=== PATIENT | female | born 1940 | race Caucasian/White ===

== ENCOUNTER → 2020-08-06 | Outpatient (CLI) | payer MEDICARE, BC ==
[~2020-08-06] MED LIST: ALEVE 220MG220 MG PO; ATIVAN 0.50.5 MG/TAB; ATIVAN 0.50.5 MG/TAB PO; ATIVAN 1MG T1 MG/TAB PO; BRINTELLIX10 PO; BUSPAR5 MG PO; BUSPIRONE HCL7.5 MG PO; CIPRO 100MG TA100 MG PO; CRESTOR 10MG10 MG PO; FISH OIL1000 MG PO; FLEXERIL 1010 MG/TAB PO; FLEXERIL5 MG PO; KLONOPIN 1MG1 MG PO; LEVOXYL0.075 MG PO; LEXAPRO 10MG10 MG PO; LITHOBID 3300 MG/TAB; MAGIC MOUTH PO; MAGNESIUM100 MG PO; MOTRIN 400400 MG/TAB PO; MULTIPLE VITAMI1 CAP PO; NEURONTIN400 MG/CAP PO; NORCO 325 MG-51 TAB PO; PAXIL 20MG20 MG PO; PAXIL20 MG PO; PAXIL40 MG; PROBIOTIC ACID1 EAC3 PO; PROZAC 10MG10 MG PO; REMERON 15M15 MG/TA1; REMERON 15M15 MG/TA1 PO; SINEQUAN75 MG PO; SYNTHROID0.05 MG/TA PO; VOLTAREN 75 DR75 MG PO; XANAX 0.5MG0.5 MG PO; XANAX0.5 MG PO; ZOCOR 40MG40 MG PO; ZOCOR5 MG PO
== END ==
LOC: COL.RAD 10:33
DX: K76.0 Fatty (change of) liver, not elsewhere classified (principal); Q63.1 Lobulated, fused and horseshoe kidney; Z90.710 Acquired absence of both cervix and uterus
CPT/HCPCS: Q9967

== ENCOUNTER → 2020-09-10 | Outpatient (CLI) | payer MEDICARE | LOC: MHCPAIN 14:30 | DX: M47.817 Spondylosis without myelopathy or radiculopathy, lumbosacral region (principal); M53.3 Sacrococcygeal disorders, not elsewhere classified; M54.5 Low back pain | CPT/HCPCS: G0463 ==

== ENCOUNTER → 2020-09-12 | Outpatient (CLI) | payer MEDICARE | LOC: MHCPAIN 12:57 | DX: M47.818 Spondylosis without myelopathy or radiculopathy, sacral and sacrococcygeal region (principal); M53.3 Sacrococcygeal disorders, not elsewhere classified | CPT/HCPCS: G0260; J1040; Q9967 ==

== ENCOUNTER → 2020-09-24 | Outpatient (CLI) | payer MEDICARE | LOC: MHCPAIN 13:56 | DX: M47.817 Spondylosis without myelopathy or radiculopathy, lumbosacral region (principal); M54.5 Low back pain; M53.3 Sacrococcygeal disorders, not elsewhere classified | CPT/HCPCS: G0463 ==

== ENCOUNTER → 2020-09-30 | Outpatient (CLI) | payer MEDICARE | LOC: MHCPAIN 09:59 | DX: M47.817 Spondylosis without myelopathy or radiculopathy, lumbosacral region (principal); M54.5 Low back pain; M53.3 Sacrococcygeal disorders, not elsewhere classified ==

== ENCOUNTER 2021-07-09 10:08 | Inpatient (IN) | payer MEDICARE, BC ==
[~2021-07-09] VITALS: Ht 160 cm; Wt 67.3 kg
[~2021-07-09 10:08] MED LIST changes: +NEURONTIN300 MG/CAP PO; -NEURONTIN400 MG/CAP PO
[2021-07-09 11:32] LABS: HEMATOCRIT 37.9 % (37.0-47.0); HEMOGLOBIN 12.6 g/dl (12.5-16.0); MEAN CELL VOLUME 92 fl (80.0-100.0); MEAN CORPUSCULAR HEMOGLOBIN 31 pg (27-31); MEAN CORPUSCULAR HGB CONC 33 g/dl (33.0-37.0); MEAN PLATELET VOLUME 10.5 fl (7.4-10.4); PLATELET COUNT 186 K/mm3 (130-400); REDCELL DISTRIBUTION WIDTH-CV 13.5 % (11.5-14.5)
[2021-07-09 11:46] LABS: ARTERIAL BLD GAS O2 SATURATION 95.8 % (92-100); ARTERIAL BLOOD GAS BASE EXCESS 1.5 (-2-2); ARTERIAL BLOOD GAS HCO3 25.7 meq/L (22-26); ARTERIAL BLOOD GAS PCO2 39.5 mmHg (35-45); ARTERIAL BLOOD GAS PO2 78.8 mmHg (80-100); ARTERIAL BLOOD GAS pH 7.43 (7.35-7.45)
[2021-07-09 11:52] LABS: ALBUMIN 3.1 gm/dL (3.4-4.8); BILIRUBIN,TOTAL 0.5 mg/dL (0.2-1.2); CALCIUM 8.5 mg/dL (8.4-10.2); CREATININE, serum 1.16 mg/dL (0.57-1.11); POTASSIUM 4.1 mmol/L (3.5-4.5); TOTAL PROTEIN 6.5 gm/dL (6.2-8.1)
[2021-07-09 11:58] LABS: BAND 26 % (0-10); LYMPHOCYTE 5 % (20.0-51.0); NEUTROPHILS 63 % (42.0-75.2)
[2021-07-09 12:00] LABS: PLATELET ESTIMATE NORMAL (NORMAL); TROPONIN-I 0.762 ng/mL (0.00-0.033)
[2021-07-09 15:05] VITALS: BP 124/79; PULSE 115; TEMP 99.2
[2021-07-09 16:00] VITALS: BP 124/72; PULSE 87; TEMP 98.8
[2021-07-09 19:56] VITALS: BP 118/46; PULSE 80; TEMP 98.7
[2021-07-09 20:35] VITALS: BP 113/42; PULSE 79; TEMP 98.9
[2021-07-09 22:56] LABS: COLLECTION METHOD CLEAN CATCH
[2021-07-09 23:02] LABS: PH 5 (5-8); SQUAMOUS EPITHELIAL None Seen /hpf (0-10); URINE APPEARANCE Hazy (CLEAR/HAZY); URINE BACTERIA Rare /hpf (NONE SEEN); URINE BILIRUBIN Negative (NEGATIVE); URINE BLOOD 1+ (NEGATIVE); URINE COLOR Yellow (YELLOW); URINE GLUCOSE 3+ (NEGATIVE); URINE KETONE Negative (NEGATIVE); URINE LEUKOCYTE ESTERASE Negative (NEGATIVE); URINE NITRATE Negative (NEGATIVE); URINE PROTEIN(semi-quant) 1+ (NEGATIVE); URINE RBC 0-2 /hpf (0-2); URINE UROBILINOGEN Negative (NEGATIVE)
[2021-07-10] VITALS (7 sets, daily range): BP systolic 116–160; BP diastolic 45–84; PULSE 76–91; TEMP 97.3–98.3
--- NOTE | 2021-07-10 00:25 | NUR ---
Patient assessed around 2114. Denies having pain and discomfort. PICC to RUE. IV fluids running per orders. Reports SOB and dyspnea with exertion. On oxygen at 3 L/min via NC. HRR. Telemetry in place. Voices no questions, needs, or concerns at this time. In bed with call light within reach.
--- NOTE | 2021-07-10 01:46 | NUR ---
HARSH COUGH NONPRODUCTIVE SCATTERED CRACKLES T/O
--- NOTE | 2021-07-10 05:49 | NUR ---
Patient has been resting in bed with call light within reach. Bed alarm on for safety. Droswy, but awakens easily. Continues on IV fluids per orders. On oxygen at 3 L/min via NC. Continues on IV ABX and steroids per orders. Voices no questions, needs, or concerns at this time. In bed with call light within reach.
[2021-07-10 07:44] LABS: HEMOGLOBIN 11.4 g/dl (12.5-16.0); MEAN CELL VOLUME 94 fl (80.0-100.0); MEAN CORPUSCULAR HEMOGLOBIN 31 pg (27-31); MEAN CORPUSCULAR HGB CONC 32 g/dl (33.0-37.0); MEAN PLATELET VOLUME 10.9 fl (7.4-10.4); PLATELET COUNT 154 K/mm3 (130-400); RED BLOOD COUNT 3.74 M/mm3 (4.10-5.30); REDCELL DISTRIBUTION WIDTH-CV 13.7 % (11.5-14.5)
[2021-07-10 07:47] LABS: HEMATOCRIT 35.2 % (37.0-47.0)
[2021-07-10 08:00] LABS: BAND 29 % (0-10); LYMPHOCYTE 3 % (20.0-51.0); NEUTROPHILS 66 % (42.0-75.2)
[2021-07-10 08:01] LABS: PLATELET ESTIMATE NORMAL (NORMAL)
[2021-07-10 08:04] LABS: CALCIUM 8.2 mg/dL (8.4-10.2); CREATININE, serum 1.06 mg/dL (0.57-1.11); POTASSIUM 3.6 mmol/L (3.5-4.5)
--- NOTE | 2021-07-10 11:09 | NUR ---
cushion worker met with patient to discuss discharge plan. Patient currently lives at home alone in [place]. She reports to being independent with her ADL's and does not utilize any DME to assist with mobility. Patient reports that she has no home oxygen needs but does use a CPAP at night. She is currently on 3L of oxygen in room. PCP is Dr. James and she utilizes [facility] for medications. Patient reports that she does have a DPOA-HC established. She has 4 children but states that her daughter Victor Manuel ([phone]) is both her DPOA-HC and her financial DPOA. Patient is awaiting on PT/OT evals. Discharge plan: Home; pending PT/OT recommendations
--- NOTE | 2021-07-10 20:55 | NUR ---
Pt found with O2 off. She stated she had just gone to the bathroom. SPO2 checked and 94% on room air. Tx done via mask, tolerated well. Home CPAP unit setup and pt assisted putting it on.
[2021-07-11 03:39] VITALS: BP 139/64; PULSE 78; TEMP 97.4
[2021-07-11 06:45] LABS: HEMOGLOBIN 11.8 g/dl (12.5-16.0); MEAN CELL VOLUME 93 fl (80.0-100.0); MEAN CORPUSCULAR HEMOGLOBIN 31 pg (27-31); MEAN CORPUSCULAR HGB CONC 33 g/dl (33.0-37.0); MEAN PLATELET VOLUME 10.8 fl (7.4-10.4); PLATELET COUNT 180 K/mm3 (130-400); RED BLOOD COUNT 3.86 M/mm3 (4.10-5.30); REDCELL DISTRIBUTION WIDTH-CV 13.4 % (11.5-14.5)
[2021-07-11 06:49] LABS: HEMATOCRIT 35.7 % (37.0-47.0)
[2021-07-11 07:03] LABS: CALCIUM 8.5 mg/dL (8.4-10.2); CREATININE, serum 1.14 mg/dL (0.57-1.11); POTASSIUM 3.9 mmol/L (3.5-4.5)
[2021-07-11 07:14] LABS: BAND 26 % (0-10); LYMPHOCYTE 4 % (20.0-51.0); NEUTROPHILS 67 % (42.0-75.2); PLATELET ESTIMATE NORMAL (NORMAL)
[2021-07-11 08:20] VITALS: BP 146/52; PULSE 82; TEMP 97.8
--- NOTE | 2021-07-11 09:00 | NUR ---
PT C/O PAIN IN R SIDE OF HEAD WHERE PT SAID SHE FELL AT HOME. PT AOX4, 96% ON RA, PT LUNGS SOUND COARSE WITH WHEEZES PRESENT. PT ASSESSMENT PERFORMED, ASSESSMENT PERFORMED, NO OTHER NEEDS
--- NOTE | 2021-07-11 09:16 | NUR ---
Several visit attempts; Systems Security Consultant left Patient a prayer card and will keep her in Systems Security Consultant's prayers.
[2021-07-11 11:41] VITALS: BP 165/65; PULSE 76; TEMP 97.9
--- NOTE | 2021-07-11 15:20 | NUR ---
PT/OT are recommending home with home health. SW met with the patient to review discharge plan and to discuss their recommendation. The patient declined home health. She states that her daughter, Victor Manuel, assists her with anything she may need and that her granddaughter lives behind her home. She states that she is not interested in home health at this time. *Discharge plan: home*
[2021-07-11 16:02] VITALS: BP 159/69; PULSE 81; TEMP 98
--- NOTE | 2021-07-11 19:17 | NUR ---
PATIENT RESTING IN BED COMFORTABLY. NO COMPLAINTS OF PAIN. CONCERNS ABOUT INSULIN MANAGEMENT, EXPRESSED NO PERSONAL HISTORY OF DIABETES BUT NOTES FAMILY HISTORY. NO SIGNIFICANT EVENTS THIS SHIFT. RESTED MOST OF DAY, WORKED WITH THERAPY WHICH EXHAUSTED PATIENT GREATLY.
[2021-07-11 19:29] VITALS: BP 152/53; PULSE 86; TEMP 98.3
--- NOTE | 2021-07-11 23:12 | NUR ---
ALERT AND OX4. DENIES CHEST PAIN OR DIZZY. SOA WHEN UP AMBULATING. O2 3L/CPAP AT HS. NEURO INTACT. PICC LINE TO RT UPPER ARM FLUSHES WELL W GOOD BLOOD RETURN. NS @50ML/HR. AC/HS BLOOD SUGAR AND TX PER ORDER. POC DISCUSSED. CALL LIGHT WI REACH.
[2021-07-12] VITALS (9 sets, daily range): BP systolic 143–188; BP diastolic 53–85; PULSE 70–88; TEMP 97.5–98.2
[2021-07-12 06:11] LABS: HEMOGLOBIN 11.5 g/dl (12.5-16.0); MEAN CELL VOLUME 91 fl (80.0-100.0); MEAN CORPUSCULAR HEMOGLOBIN 30 pg (27-31); MEAN CORPUSCULAR HGB CONC 33 g/dl (33.0-37.0); MEAN PLATELET VOLUME 10.8 fl (7.4-10.4); PLATELET COUNT 192 K/mm3 (130-400); RED BLOOD COUNT 3.78 M/mm3 (4.10-5.30); REDCELL DISTRIBUTION WIDTH-CV 13.3 % (11.5-14.5)
[2021-07-12 06:14] LABS: HEMATOCRIT 34.5 % (37.0-47.0)
[2021-07-12 06:30] LABS: ALBUMIN 2.2 gm/dL (3.4-4.8); CREATININE, serum 0.77 mg/dL (0.57-1.11); MAGNESIUM 1.9 mg/dL (1.6-2.6); PHOSPHOROUS 2.3 mg/dL (2.3-4.7)
[2021-07-12 06:33] LABS: POTASSIUM 2.8 mmol/L (3.5-4.5)
--- NOTE | 2021-07-12 06:54 | NUR ---
Patient continues getting fluids ant antibiotics. She removed the telemetry leads twice. She did not complained of pain. She used her CPAP intermitently. Lab called giving a potassium result of 2.8. Report will be given to day RN.
[2021-07-12 07:23] LABS: BAND 24 % (0-10); LYMPHOCYTE 5 % (20.0-51.0); METAMYELOCYTE 2 % (0-0); NEUTROPHILS 65 % (42.0-75.2); PLATELET ESTIMATE NORMAL (NORMAL)
--- NOTE | 2021-07-12 08:17 | NUR ---
Assessment completed, alert/oriented, vital signs stable, denies pain, stated she "feels a little better", no resp.difficulty noted, a few crackles to her right mid-lower lobe, all other lung de la rosa CTA, she still had a moist/ non-productive cough, heart RRR/SR on tele, distal pulses are palpalbe, wore C-pap overnight and is on room air/ not requiring supplemental oxyen, she is up ambulating independently, I helped order her breakfast and administered her morning medications, Potassium 2.8/ notified hospitalist and we are initiating replacement protocol, she is up ambulating hallway with PT now, will continue to monitor
--- NOTE | 2021-07-12 21:45 | NUR ---
Patient assessed around 2100. Alert and oriented, and able to make needs known. High fall risk precautions in palce. PICC to RUE with IV fluids running. Continues on IV ABX and Steroids. Explained that steroids increase blood sugars, as she was worried about elevated blood sugars. Voiced understanding. Reports continued SOB with exertion. On room air, but wears CPAP at night. LS expiratory wheezing in upper lobes, coarse crackles in lower. Has moist cough, but unable to produce sputum. Given Sputum specimen cut to try and get sample. HRR. Telemetry in place. BSAx4. Abdomen soft and non-tender. Voices no questions, needs, or concerns at this time. In bed with call light within reach.
[2021-07-13] VITALS (7 sets, daily range): BP systolic 143–186; BP diastolic 62–73; PULSE 65–82; TEMP 97.8–98.4
--- NOTE | 2021-07-13 05:49 | NUR ---
Patient has been wearing CPAP this shift. Denies pain and discomfort. Continues to have SOB and dyspnea with exertion. Unable to produce sputum for sputum sample. IV fluids continue as well as ABX and steroids. Voices no questions, needs, or concerns at this time. In bed with call light within reach.
[2021-07-13 06:39] LABS: HEMATOCRIT 38.1 % (37.0-47.0); HEMOGLOBIN 12.4 g/dl (12.5-16.0); MEAN CELL VOLUME 93 fl (80.0-100.0); MEAN CORPUSCULAR HEMOGLOBIN 30 pg (27-31); MEAN CORPUSCULAR HGB CONC 33 g/dl (33.0-37.0); MEAN PLATELET VOLUME 10.6 fl (7.4-10.4); PLATELET COUNT 229 K/mm3 (130-400); RED BLOOD COUNT 4.09 M/mm3 (4.10-5.30); REDCELL DISTRIBUTION WIDTH-CV 13.2 % (11.5-14.5)
[2021-07-13 06:43] LABS: ALBUMIN 2.3 gm/dL (3.4-4.8); CALCIUM 8.3 mg/dL (8.4-10.2); CREATININE, serum 0.9 mg/dL (0.57-1.11); MAGNESIUM 1.9 mg/dL (1.6-2.6); PHOSPHOROUS 4.1 mg/dL (2.3-4.7); POTASSIUM 3.8 mmol/L (3.5-4.5)
[2021-07-13 07:28] LABS: BAND 17 % (0-10); LYMPHOCYTE 4 % (20.0-51.0); METAMYELOCYTE 1 % (0-0); NEUTROPHILS 74 % (42.0-75.2); PLATELET ESTIMATE NORMAL (NORMAL)
--- NOTE | 2021-07-13 08:00 | NUR ---
Assessment completed, alert/oriented, vital signs stable, denies pain this or discomfort, reports "feeling about the same", still has some dyspnea with exertion, still has some coarse lung sounds to RLL, heart RRR/distal pulses palpable, blood sugars are still running high and she remains on the IV steroids, she is ambulatory and independent in the room, morning meds given and she has breakfast coming, shanonnevaeh needs
--- NOTE | 2021-07-13 22:23 | NUR ---
Patient assessed around 2004. Alert and oriented. Denies pain and discomfort. PICC to RUE, IV fluids and ABX running per orders. Denies SOB and dyspnea. On room air. Wears CPAP at night. LS expiratory wheezes. HRR. Telemetry in place. BSAx4. Abdomen soft and non-tender. No edema. Voices no questions, needs, or concerns at this time. In bed with call light within reach.
[2021-07-14 05:04] VITALS: BP 157/72; PULSE 79; TEMP 97.8
--- NOTE | 2021-07-14 05:52 | NUR ---
Patient remained on room air during the night, but did wear CPAP while sleeping. Has denied pain and discomfort. Reports feeling better, but continues to have "normal" shortness of breath with exertion. Asking if she will be able to go home today, and told patient that it will be up to the physician when they come do rounds this morning. Voiced understanding. Voices no further questions, needs, or concerns at this time. In bed with call light within reach.
[2021-07-14 07:18] LABS: HEMATOCRIT 38.3 % (37.0-47.0); HEMOGLOBIN 12.8 g/dl (12.5-16.0); MEAN CELL VOLUME 91 fl (80.0-100.0); MEAN CORPUSCULAR HEMOGLOBIN 31 pg (27-31); MEAN CORPUSCULAR HGB CONC 33 g/dl (33.0-37.0); MEAN PLATELET VOLUME 10.1 fl (7.4-10.4); PLATELET COUNT 270 K/mm3 (130-400); RED BLOOD COUNT 4.19 M/mm3 (4.10-5.30); REDCELL DISTRIBUTION WIDTH-CV 13.3 % (11.5-14.5)
[2021-07-14 07:32] LABS: ALBUMIN 2.4 gm/dL (3.4-4.8); CALCIUM 8.3 mg/dL (8.4-10.2); CREATININE, serum 0.92 mg/dL (0.57-1.11); MAGNESIUM 1.9 mg/dL (1.6-2.6); PHOSPHOROUS 5.2 mg/dL (2.3-4.7); POTASSIUM 3.9 mmol/L (3.5-4.5)
[2021-07-14 08:00] VITALS: BP 173/68; PULSE 79; TEMP 97.7
[2021-07-14 08:12] LABS: BAND 1 % (0-10); LYMPHOCYTE 6 % (20.0-51.0); NEUTROPHILS 90 % (42.0-75.2); PLATELET ESTIMATE NORMAL (NORMAL)
[2021-07-14] MEDS ORDERED: AMOXICILLIN 8751 TAB PO (09:48)
[2021-07-14] MEDS ORDERED: PREDNISONE10 MG PO (09:53)
[2021-07-14] MEDS ORDERED: NORVASC 5MG5 MG/TAB PO (09:55)
[2021-07-14] MEDS ORDERED: ASPIRIN 81M81 MG/TA2 PO (09:59)
--- NOTE | 2021-07-14 11:03 | NUR ---
Assessment completed, alert/oriented but very forgetful, vital signs stable, denies pain or discomfort and report "feeling better today", lung sounds improved, still has some crackles to right lower lobe/ but good air movement overall, daughter present at bedside and Hospitalist have been around to discuss plan of care with them, discharging home today
[2021-07-14 12:23] VITALS: BP 165/69; PULSE 76; TEMP 97.9
--- NOTE | 2021-07-14 14:00 | NUR ---
Patient to discharge home today. SW met with patient to present and review IM form. Patient's daughter at bedside. Patient verbalized understanding and provided signature. SW placed form in chart and provided copy to patient. Discharge Plan: Home
--- NOTE | 2021-07-14 14:30 | NUR ---
Discharge orders discussed with patient and her daughter, instructed to follow up with PCP/Cards/Pulm as we have scheduled for her, instructed to take meds as prescribed/ scripts sent to pharmacy for her, PICC removed by AIVS, Tele removed, leaving with daughter, i escorted her out via wheelchair
== END 2021-07-14 15:59 | disposition home or self-care (01) | DRG 871 ==
LOC: COL.ER 10:08 → MEDICAL 13:37
PROVIDERS: Physician Assistant; ADMIT Internal Medicine
PROC: 02HV33Z Insertion of Infusion Device into Superior Vena Cava, Percutaneous Approach (ICD-10-PCS; principal; 2021-07-09)
DX: A41.9 Sepsis, unspecified organism (principal); J96.01 Acute respiratory failure with hypoxia; J18.9 Pneumonia, unspecified organism; I21.A1 Myocardial infarction type 2; G93.40 Encephalopathy, unspecified; F32.A Depression, unspecified; M54.50 Low back pain, unspecified; Z66 Do not resuscitate; M19.90 Unspecified osteoarthritis, unspecified site; K58.9 Irritable bowel syndrome, unspecified; E78.5 Hyperlipidemia, unspecified; E03.9 Hypothyroidism, unspecified; F41.1 Generalized anxiety disorder; G47.33 Obstructive sleep apnea (adult) (pediatric); R73.9 Hyperglycemia, unspecified; T38.0X5A Adverse effect of glucocorticoids and synthetic analogues, initial encounter; E87.6 Hypokalemia; Z20.822 Contact with and (suspected) exposure to COVID-19; Z87.891 Personal history of nicotine dependence
CPT/HCPCS: 99223-AI; 99232-AI; 99233-AI; 99239; C1751; J0360; J1100; J1644; J1815; J2060; J2543; J2920; J2930; J7030; Q9967

== ENCOUNTER → 2021-11-20 | Outpatient (CLI) | payer MEDICARE, BC ==
[~2021-11-20] MED LIST changes: +AMOXICILLIN 8751 TAB PO; +ASPIRIN 81M81 MG/TA2 PO; +NORVASC 5MG5 MG/TAB PO; +PREDNISONE10 MG PO
== END ==
LOC: MC.RAD 16:54
DX: Z12.31 Encounter for screening mammogram for malignant neoplasm of breast (principal)